=== PATIENT | male | born 1935 | race Caucasian/White ===

== ENCOUNTER → 2017-07-22 | Outpatient (CLI) | payer MEDICARE, BC | LOC: RAD 08:59 | DX: N40.0 Benign prostatic hyperplasia without lower urinary tract symptoms (principal); N13.30 Unspecified hydronephrosis ==

== ENCOUNTER 2018-06-11 09:00 | Outpatient (RCR) | payer MEDICARE, BC | END 2018-08-26 | disposition home or self-care (01) | LOC: PT | DX: M25.512 Pain in left shoulder (principal) | CPT/HCPCS: G8985-GP ==

== ENCOUNTER → 2018-07-08 | Outpatient (CLI) | payer MEDICARE, BC | LOC: LAB 10:13 | DX: M19.012 Primary osteoarthritis, left shoulder (principal); M19.042 Primary osteoarthritis, left hand ==

== ENCOUNTER → 2019-12-08 | Outpatient (CLI) | payer MEDICARE, BC | LOC: RAD 08:00 | DX: S42.212D Unspecified displaced fracture of surgical neck of left humerus, subsequent encounter for fracture with routine healing (principal) ==

== ENCOUNTER 2019-12-17 09:00 | Outpatient (RCR) | payer MEDICARE, BC | END 2019-12-17 09:30 | disposition still patient (30) | LOC: PT 09:00 | DX: S42.92XD Fracture of left shoulder girdle, part unspecified, subsequent encounter for fracture with routine healing (principal) ==

== ENCOUNTER → 2020-11-23 | Outpatient (CLI) | payer MEDICARE, BC | LOC: RAD 07:15 | DX: N45.2 Orchitis (principal); N45.1 Epididymitis ==